=== PATIENT | male | born 1935 | race Caucasian/White ===

== ENCOUNTER 2019-02-07 07:09 | Emergency (ER) | payer MEDICARE, OTHER ==
[~2019-02-07] VITALS: Ht 170.2 cm; Wt 68.9 kg
[2019-02-07 07:15] VITALS: BP 91/52
--- NOTE | 2019-02-07 07:40 | NUR ---
WOUND CARE PROVIDED, SKIN ADHESIVE APPLIED. D/C IN STABLE CONDITION.
== END 2019-02-07 07:43 | disposition home or self-care (01) ==
LOC: ER 07:11
DX: S61.211A Laceration without foreign body of left index finger without damage to nail, initial encounter (principal); S60.411A Abrasion of left index finger, initial encounter; I10 Essential (primary) hypertension; E11.9 Type 2 diabetes mellitus without complications; Z95.5 Presence of coronary angioplasty implant and graft; Z88.2 Allergy status to sulfonamides; Z98.890 Other specified postprocedural states; W01.0XXA Fall on same level from slipping, tripping and stumbling without subsequent striking against object, initial encounter; Y93.89 Activity, other specified; Y92.89 Other specified places as the place of occurrence of the external cause; Y99.8 Other external cause status
CPT/HCPCS: 12001; 99283; A6402

== ENCOUNTER 2019-06-10 15:38 | Emergency (ER) | payer MEDICARE, OTHER ==
[~2019-06-10] VITALS: Ht 170.2 cm; Wt 67.1 kg
[2019-06-10 15:58] VITALS: BP 184/83
[2019-06-10] MEDS ORDERED: LIDOCAINE 1%-EPI 1:100,000 20 ML VIAL ONE (16:17)
== END 2019-06-10 17:21 | disposition home or self-care (01) ==
LOC: ER 15:41
DX: S81.012A Laceration without foreign body, left knee, initial encounter (principal); I10 Essential (primary) hypertension; E11.9 Type 2 diabetes mellitus without complications; Z98.890 Other specified postprocedural states; Z95.5 Presence of coronary angioplasty implant and graft; Z88.2 Allergy status to sulfonamides; W01.0XXA Fall on same level from slipping, tripping and stumbling without subsequent striking against object, initial encounter; Y93.89 Activity, other specified; Y92.89 Other specified places as the place of occurrence of the external cause; Y99.8 Other external cause status
CPT/HCPCS: 12002; 99283; J3490

== ENCOUNTER 2019-06-24 17:11 | Emergency (ER) | payer MEDICARE, OTHER ==
[~2019-06-24] VITALS: Ht 170.2 cm; Wt 67.1 kg
[2019-06-24 17:17] VITALS: BP 149/69
--- NOTE | 2019-06-24 17:35 | NUR ---
Patient discharged to home in stable condition. Written and verbal after care instructions given. Patient verbalizes understanding of instruction.
== END 2019-06-24 17:34 | disposition home or self-care (01) ==
LOC: ER 17:11
DX: S81.012D Laceration without foreign body, left knee, subsequent encounter (principal); I10 Essential (primary) hypertension; E11.9 Type 2 diabetes mellitus without complications; Z95.5 Presence of coronary angioplasty implant and graft; Z95.1 Presence of aortocoronary bypass graft; Z88.2 Allergy status to sulfonamides; X58.XXXD Exposure to other specified factors, subsequent encounter

== ENCOUNTER 2023-09-23 11:51 | Inpatient (IN) | payer MEDICARE, BC ==
[~2023-09-23] VITALS: Ht 170.2 cm; Wt 54.4 kg
[2023-09-23] VITALS (8 sets, daily range): BP systolic 148–201; BP diastolic 59–127; TEMP 97.8; O2SAT 93–96
[2023-09-23 12:27] LABS: BASOPHILS # (AUTO) 0.2 K/uL (0.0-0.2); BASOPHILS % (AUTO) 0.8 % (0.0-2.0); HEMATOCRIT 34 % (39-51); LYMPHOCYTES # (AUTO) 0.3 K/uL (0.8-4.8); LYMPHOCYTES % (AUTO) 1.4 % (20.0-44.0); MEAN CORPUSCULAR HEMOGLOBIN 31 PG (26.0-33.0); MEAN CORPUSCULAR HGB CONC 32 g/dl (31.0-36.0); MEAN CORPUSCULAR VOLUME 94 fL (80-96); MONOCYTES # (AUTO) 1.4 K/uL (0.1-1.30); MONOCYTES % (AUTO) 6.3 % (2.0-12.0); NEUTROPHILS # (AUTO) 20.3 K/uL (1.8-8.9); NEUTROPHILS % (AUTO) 91.5 % (43.0-81.0); PLATELET COUNT (AUTO) 230 K/uL (150-450); RED BLOOD CELL COUNT(AUTO) 3.62 MIL/uL (4.5-6.0); RED CELL DISTRIBUTION WIDTH 15.2 % (11.5-15.0); WHITE BLOOD COUNT (AUTO) 22.2 K/uL (4.3-11.0)
[2023-09-23 12:43] LABS: ALANINE AMINOTRANSFERASE 29 U/L (12-78); ALBUMIN 2.8 g/dL (3.4-5.0); ALKALINE PHOSPHATASE 81 U/L (46-116); ASPARTATE AMINOTRANSFERASE 50 U/L (15-37); BILIRUBIN,DIRECT 0.1 mg/dL (0.0-0.2); BILIRUBIN,TOTAL 0.4 mg/dL (0.2-1.0); CALCIUM, SERUM 8.9 mg/dL (8.5-10.1); CARBON DIOXIDE 12 mmol/L (21-32); CHLORIDE 102 mmol/L (98-107); CREATININE 3.8 mg/dL (0.6-1.3); POTASSIUM 3.9 mmol/L (3.5-5.1); SODIUM SERUM 133 mmol/L (136-145); TOTAL PROTEIN, SERUM 6.8 g/dL (6.4-8.2)
[2023-09-23 12:56] LABS: GLUCOSE 449 mg/dL (74-106); UREA NITROGEN, BLOOD 102 mg/dL (7-18)
[2023-09-23] MEDS ORDERED: IV NS 0.9% 1,000 ML BAG IV ONE (13:30)
[2023-09-23] MEDS ORDERED: POTA-10 PO (13:52)
[2023-09-23] MEDS ORDERED: COLE625T14 PO (13:52)
[2023-09-23] MEDS ORDERED: CARV12.5 PO (13:52)
[2023-09-23] MEDS ORDERED: GUAN2TAB14 PO (13:52)
[2023-09-23] MEDS ORDERED: SLOW FE PO (13:52)
[2023-09-23] MEDS ORDERED: PANT40TA2 PO (13:52)
[2023-09-23] MEDS ORDERED: CLOP75TA15 PO (13:52)
[2023-09-23] MEDS ORDERED: HYDR-4077 PO (13:52)
[2023-09-23] MEDS ORDERED: CHOL500052 PO (13:52)
[2023-09-23] MEDS ORDERED: MULT-1201 PO (13:52)
[2023-09-23] MEDS ORDERED: ACET-868 PO (13:52)
[2023-09-23] MEDS ORDERED: GLIP10TA3 PO (13:52)
[2023-09-23] MEDS ORDERED: BUDE9TAB PO (13:52)
[2023-09-23] MEDS ORDERED: [UNRECOGNIZED DRUG - OTHER] PO (13:52)
[2023-09-23] MEDS ORDERED: MESA1.2T PO (13:52)
[2023-09-23] MEDS ORDERED: FURO-144 PO (13:52)
[2023-09-23] MEDS ORDERED: ISOS30TA9 PO (13:52)
[2023-09-23] MEDS ORDERED: IV PREMIX NS +20MEQ KCL 1 L IV PRN (14:00)
[2023-09-23] MEDS ORDERED: INSULIN REGULAR, HUMAN 100 UNITS in IV NS 0.9% 100 ML IV PRN ×2 (14:00)
[2023-09-23] MEDS ORDERED: CEFTRIAXONE 1GM BAG (ER ONLY) 50 ML IV ONE ×2 (14:00→14:10)
[2023-09-23 14:38] LABS: APPEARANCE,URINE CLEAR (CLEAR); BILIRUBIN,URINE NEGATIVE (NEGATIVE); BLOOD, URINE TRACE-INTA Ery/uL (NEGATIVE); COLOR,URINE YELLOW (YELLOW); KETONES,URINE TRACE mg/dL (NEGATIVE); LEUKOCYTE ESTERASE ,URINE NEGATIVE (NEGATIVE); NITRITE, URINE NEGATIVE (NEGATIVE); PH,URINE 5.5 (5.0-8.0); PROTEIN,URINE 3+ mg/dl (NEGATIVE); UGLUCOSE 2+ mg/dL (NEGATIVE); UROBILINOGEN,URINE 0.2 EU/dL (0.2)
[2023-09-23 15:32] LABS: ADD URINE CULTURE NO; BACTERIA,URINE None seen /HPF (None Seen); MUCUS,URINE Many /LPF (None Seen); SQUAMOUS EPITHELIAL CELL,UR None Seen /HPF (None Seen); WBC,URINE NONE SEEN /HPF (0-3)
[2023-09-23 15:51] LABS: PHOSPHORUS 5.6 mg/dL (2.5-4.9)
[2023-09-23] MEDS ORDERED: Z GUARD REMEDY 4 OZ OINT TP PRN (16:00)
[2023-09-23] MEDS ORDERED: ACETAMINOPHEN 325 MG TABLET PO PRN (16:00)
[2023-09-23] MEDS ORDERED: ONDANSETRON HCL/PF 4 MG/2 ML VIAL IVP PRN (16:00)
[2023-09-23] MEDS ORDERED: INSULIN REGULAR, HUMAN 100 UNIT in IV NS 0.9% 99 ML IV PRN ×4 (16:00)
[2023-09-23] MEDS: BLOOD SUGAR DIAGNOSTIC 1 EACH STRIP IN SCH ×8 (16:26→23:17)
[2023-09-23] MEDS ORDERED: BLOOD SUGAR DIAGNOSTIC 1 EACH STRIP IN SCH (17:00)
[2023-09-23] MEDS: IV NS 0.9% 1,000 ML IV PRN ×2 (17:04→18:01)
[2023-09-23] MEDS: CARVEDILOL 12.5 MG TABLET PO SCH (17:23)
[2023-09-23] MEDS: ISOSORBIDE DINITRATE (20MG) 20 MG TABLET PO SCH (17:23)
[2023-09-23 17:53] LABS: CALCIUM, SERUM 8.6 mg/dL (8.5-10.1); CARBON DIOXIDE 11 mmol/L (21-32); CHLORIDE 109 mmol/L (98-107); CREATININE 3.4 mg/dL (0.6-1.3); GLUCOSE 129 mg/dL (74-106); MAGNESIUM 2.1 mg/dL (1.8-2.4); PHOSPHORUS 4.3 mg/dL (2.5-4.9); POTASSIUM 3.4 mmol/L (3.5-5.1); SODIUM SERUM 139 mmol/L (136-145); UREA NITROGEN, BLOOD 95 mg/dL (7-18)
[2023-09-23 18:32] LABS: MAGNESIUM 1.9 mg/dL (1.8-2.4); PHOSPHORUS 4.2 mg/dL (2.5-4.9)
[2023-09-23] MEDS: ENOXAPARIN SODIUM 60 MG/0.6 ML DISP.SYRIN SQ SCH (18:33)
[2023-09-23] MEDS: Potassium Chloride 20 MEQ in IV D5/0.45 NACL 1,000 ML IV SCH (18:51)
[2023-09-23] MEDS ORDERED: ERGOCALCIFEROL (VITAMIN D 2) 50,000 UNIT CAPSULE PO SCH (20:00)
[2023-09-23] MEDS ORDERED: Medication Not On Formulary EA (Cholecalciferol (Vitamin D3) (Vitamin D3) 50,000 UNIT) PO SCH (20:00)
[2023-09-23] MEDS ORDERED: HEPARIN SODIUM, PORCINE 5000 UNITS/1 ML VIAL SQ SCH (21:00)
[2023-09-23 21:31] LABS: CALCIUM, SERUM 8.3 mg/dL (8.5-10.1); CARBON DIOXIDE 16 mmol/L (21-32); CHLORIDE 111 mmol/L (98-107); CREATININE 3.2 mg/dL (0.6-1.3); GLUCOSE 101 mg/dL (74-106); POTASSIUM 3.8 mmol/L (3.5-5.1); SODIUM SERUM 139 mmol/L (136-145)
[2023-09-23 21:33] LABS: UREA NITROGEN, BLOOD 92 mg/dL (7-18)
[2023-09-23] MEDS ORDERED: GUANFACINE HCL 2 MG PO SCH (22:00)
[2023-09-23] MEDS: hydrALAZINE HCL IV 20 MG VIAL IV PRN (22:05)
[2023-09-23 22:27] LABS: PHOSPHORUS 4.4 mg/dL (2.5-4.9)
[2023-09-24] VITALS (28 sets, daily range): BP systolic 135–220; BP diastolic 64–109; TEMP 97.4–98.6; O2SAT 92–97
[2023-09-24] MEDS: BLOOD SUGAR DIAGNOSTIC 1 EACH STRIP IN SCH ×10 (00:34→22:12)
[2023-09-24 01:24] LABS: CALCIUM, SERUM 8.2 mg/dL (8.5-10.1); CARBON DIOXIDE 13 mmol/L (21-32); CHLORIDE 112 mmol/L (98-107); GLUCOSE 84 mg/dL (74-106); MAGNESIUM 1.9 mg/dL (1.8-2.4); PHOSPHORUS 4.4 mg/dL (2.5-4.9); POTASSIUM 3.7 mmol/L (3.5-5.1); SODIUM SERUM 139 mmol/L (136-145)
[2023-09-24 01:27] LABS: UREA NITROGEN, BLOOD 90 mg/dL (7-18)
[2023-09-24] MEDS ORDERED: DEXTROSE 50%-WATER 50 ML DISP.SYRIN IV PRN ×2 (01:30→11:00)
[2023-09-24] MEDS ORDERED: INSULIN REGULAR, HUMAN 100 UNIT/ML 3 ML VIAL SQ PRN (01:30)
[2023-09-24 04:10] LABS: BASOPHILS % (AUTO) 0.2 % (0.0-2.0); HEMATOCRIT 31 % (39-51); HEMOGLOBIN 9.8 g/dL (13.5-17.5); LYMPHOCYTES # (AUTO) 0.6 K/uL (0.8-4.8); LYMPHOCYTES % (AUTO) 3.1 % (20.0-44.0); MEAN CORPUSCULAR HEMOGLOBIN 31 PG (26.0-33.0); MEAN CORPUSCULAR HGB CONC 32 g/dl (31.0-36.0); MEAN CORPUSCULAR VOLUME 95 fL (80-96); MONOCYTES # (AUTO) 0.8 K/uL (0.1-1.30); MONOCYTES % (AUTO) 4.6 % (2.0-12.0); NEUTROPHILS # (AUTO) 16.4 K/uL (1.8-8.9); NEUTROPHILS % (AUTO) 92.1 % (43.0-81.0); PLATELET COUNT (AUTO) 185 K/uL (150-450); RED BLOOD CELL COUNT(AUTO) 3.22 MIL/uL (4.5-6.0); RED CELL DISTRIBUTION WIDTH 15.1 % (11.5-15.0); WHITE BLOOD COUNT (AUTO) 17.8 K/uL (4.3-11.0)
[2023-09-24] MEDS: hydrALAZINE HCL IV 20 MG VIAL IV PRN (04:11)
[2023-09-24 04:19] LABS: CHOLESTEROL 177 mg/dL (<200); HDL CHOLESTEROL 46 mg/dL (40-60); LDL 107 mg/dL (0-99); TRIGLYCERIDES 138 mg/dL (30-150)
[2023-09-24 04:21] LABS: CALCIUM, SERUM 8.1 mg/dL (8.5-10.1); CARBON DIOXIDE 11 mmol/L (21-32); CHLORIDE 111 mmol/L (98-107); CREATININE 2.8 mg/dL (0.6-1.3); GLUCOSE 165 mg/dL (74-106); MAGNESIUM 1.9 mg/dL (1.8-2.4); PHOSPHORUS 4.5 mg/dL (2.5-4.9); POTASSIUM 3.8 mmol/L (3.5-5.1); SODIUM SERUM 139 mmol/L (136-145)
[2023-09-24 04:27] LABS: UREA NITROGEN, BLOOD 86 mg/dL (7-18)
[2023-09-24] MEDS ORDERED: INSULIN REGULAR, HUMAN 100 UNIT in IV NS 0.9% 99 ML IV PRN ×2 (05:00)
[2023-09-24] MEDS: Potassium Chloride 20 MEQ in IV D5/0.45 NACL 1,000 ML IV SCH (05:16)
[2023-09-24] MEDS ORDERED: BLOOD SUGAR DIAGNOSTIC 1 EACH STRIP IN SCH (06:00)
[2023-09-24 08:43] LABS: THYROID STIMULATING HORMONE 0.398 uIU/mL (0.358-3.74)
[2023-09-24] MEDS: CARVEDILOL 12.5 MG TABLET PO SCH ×2 (08:51→21:33)
[2023-09-24] MEDS: PANTOPRAZOLE 40 MG VIAL IV SCH (08:51)
[2023-09-24] MEDS: VIT B CMPLX 3/FA/VIT C/BIOTIN 1 TAB TABLET PO SCH (08:52)
[2023-09-24] MEDS: ISOSORBIDE DINITRATE (20MG) 20 MG TABLET PO SCH (08:52)
[2023-09-24] MEDS: CLOPIDOGREL BISULFATE 75 MG TABLET PO SCH (08:52)
[2023-09-24] MEDS: NITROGLYCERIN 30 GM TUBE TP SCH ×2 (08:53→21:30)
[2023-09-24 08:58] LABS: CALCIUM, SERUM 8.4 mg/dL (8.5-10.1); CARBON DIOXIDE 15 mmol/L (21-32); CHLORIDE 112 mmol/L (98-107); CREATININE 2.8 mg/dL (0.6-1.3); GLUCOSE 137 mg/dL (74-106); POTASSIUM 3.4 mmol/L (3.5-5.1); SODIUM SERUM 139 mmol/L (136-145)
[2023-09-24] MEDS ORDERED: Medication Not On Formulary EA (Budesonide (Uceris) 9 MG) PO SCH (09:00)
[2023-09-24] MEDS ORDERED: hydrALAZINE HCL 50 MG TABLET PO SCH (09:00)
[2023-09-24 09:49] LABS: UREA NITROGEN, BLOOD 81 mg/dL (7-18)
[2023-09-24 11:04] LABS: CREATININE, URINE 39.3 MG/DL (30.0-125.0); URINE TOTAL PROTEIN 200.3 mg/dL (0-11.9)
[2023-09-24] MEDS: IV LR 1000 ML 1,000 ML IV PRN (11:10)
[2023-09-24] MEDS: hydrALAZINE HCL 50 MG TABLET PO SCH (17:14)
[2023-09-24] MEDS: ENOXAPARIN SODIUM 60 MG/0.6 ML DISP.SYRIN SQ SCH (17:16)
[2023-09-24] MEDS: INSULIN REGULAR, HUMAN 100 UNIT/ML 3 ML VIAL SQ PRN ×2 (17:38→22:27)
[2023-09-24] MEDS ORDERED: ISOSORBIDE DINITRATE (20MG) 20 MG TABLET PO SCH (21:00)
[2023-09-25] VITALS (7 sets, daily range): BP systolic 145–193; BP diastolic 70–87; TEMP 97.7–98.5; O2SAT 94–97
[2023-09-25] MEDS: hydrALAZINE HCL 50 MG TABLET PO SCH ×3 (00:22→16:35)
[2023-09-25] MEDS: IV LR 1000 ML 1,000 ML IV PRN ×2 (02:28→16:18)
[2023-09-25] MEDS: BLOOD SUGAR DIAGNOSTIC 1 EACH STRIP IN SCH ×4 (07:49→22:00)
[2023-09-25 07:53] LABS: BASOPHILS % (AUTO) 0.1 % (0.0-2.0); EOSINOPHILS # (AUTO) 0.1 K/uL (0.0-0.7); EOSINOPHILS % (AUTO) 0.9 % (0.0-6.0); HEMATOCRIT 32 % (39-51); HEMOGLOBIN 10.5 g/dL (13.5-17.5); LYMPHOCYTES # (AUTO) 0.8 K/uL (0.8-4.8); LYMPHOCYTES % (AUTO) 4.9 % (20.0-44.0); MEAN CORPUSCULAR HEMOGLOBIN 31 PG (26.0-33.0); MEAN CORPUSCULAR HGB CONC 33 g/dl (31.0-36.0); MEAN CORPUSCULAR VOLUME 94 fL (80-96); MONOCYTES % (AUTO) 6.5 % (2.0-12.0); NEUTROPHILS # (AUTO) 14.1 K/uL (1.8-8.9); NEUTROPHILS % (AUTO) 87.6 % (43.0-81.0); PLATELET COUNT (AUTO) 192 K/uL (150-450); RED BLOOD CELL COUNT(AUTO) 3.41 MIL/uL (4.5-6.0); RED CELL DISTRIBUTION WIDTH 15.2 % (11.5-15.0); WHITE BLOOD COUNT (AUTO) 16.1 K/uL (4.3-11.0)
[2023-09-25 08:33] LABS: CREATINE KINASE, TOTAL 143 U/L (39-308)
[2023-09-25 08:44] LABS: ALANINE AMINOTRANSFERASE 24 U/L (12-78); ALBUMIN 2.3 g/dL (3.4-5.0); ALKALINE PHOSPHATASE 63 U/L (46-116); ASPARTATE AMINOTRANSFERASE 21 U/L (15-37); BILIRUBIN,TOTAL 0.4 mg/dL (0.2-1.0); CALCIUM, SERUM 8.3 mg/dL (8.5-10.1); CARBON DIOXIDE 15 mmol/L (21-32); CHLORIDE 109 mmol/L (98-107); CREATININE 2.6 mg/dL (0.6-1.3); GLUCOSE 118 mg/dL (74-106); MAGNESIUM 1.8 mg/dL (1.8-2.4); PHOSPHORUS 3.6 mg/dL (2.5-4.9); POTASSIUM 3.5 mmol/L (3.5-5.1); SODIUM SERUM 137 mmol/L (136-145); TOTAL PROTEIN, SERUM 5.8 g/dL (6.4-8.2); UREA NITROGEN, BLOOD 69 mg/dL (7-18)
[2023-09-25] MEDS: PANTOPRAZOLE 40 MG VIAL IV SCH (09:16)
[2023-09-25] MEDS: CARVEDILOL 12.5 MG TABLET PO SCH ×2 (09:16→21:00)
[2023-09-25] MEDS: NIFEdipine XL (30MG) 30 MG TAB PO SCH (09:16)
[2023-09-25] MEDS: CLOPIDOGREL BISULFATE 75 MG TABLET PO SCH (09:16)
[2023-09-25] MEDS: ISOSORBIDE DINITRATE (20MG) 20 MG TABLET PO SCH ×2 (09:17→21:00)
[2023-09-25] MEDS: VIT B CMPLX 3/FA/VIT C/BIOTIN 1 TAB TABLET PO SCH (09:17)
[2023-09-25] MEDS: HEPARIN SODIUM, PORCINE 5000 UNITS/1 ML VIAL SQ SCH ×2 (09:18→21:00)
[2023-09-25] MEDS: INSULIN REGULAR, HUMAN 100 UNIT/ML 3 ML VIAL SQ PRN ×3 (12:29→23:35)
[2023-09-25 14:51] LABS: HIV-1 p24 ANTIGEN NON REACTIVE (NONREACTIVE); HIV-1/2 ANTIBODY NON REACTIVE (NONREACTIVE)
[2023-09-26] VITALS: BP 104/57; TEMP 99; O2SAT 94
[2023-09-26] MEDS: hydrALAZINE HCL 50 MG TABLET PO SCH ×3 (01:00→16:24)
[2023-09-26 04:00] VITALS: BP 104/57; TEMP 99; O2SAT 94
[2023-09-26 04:06] LABS: PTH, INTACT 28 pg/mL (15-65)
[2023-09-26] MEDS: IV LR 1000 ML 1,000 ML IV PRN (06:26)
[2023-09-26 07:19] LABS: ABG BASE EXCESS -8.2 mmol/L; ABG OXYGEN SATURATION 89.6 % (92.0-98.5); ABG PH 7.447 (7.350-7.450); ABG PO2 58.7 mmHg (75.0-100.0); ABG TOTAL HEMOGLOBIN 10.4 G/dL (13.5-18.0); MetHb 0.3 % (0.0-1.5); O2Hb 87.5 % (94.0-97.0); SITE, ABG Left Radial; VENT MODE, BG ROOM AIR
[2023-09-26] MEDS: BLOOD SUGAR DIAGNOSTIC 1 EACH STRIP IN SCH ×3 (07:30→16:54)
[2023-09-26 07:59] LABS: BASOPHILS % (AUTO) 0.1 % (0.0-2.0); EOSINOPHILS # (AUTO) 0.1 K/uL (0.0-0.7); EOSINOPHILS % (AUTO) 1.1 % (0.0-6.0); HEMATOCRIT 30 % (39-51); HEMOGLOBIN 9.9 g/dL (13.5-17.5); LYMPHOCYTES # (AUTO) 0.6 K/uL (0.8-4.8); MEAN CORPUSCULAR HEMOGLOBIN 31 PG (26.0-33.0); MEAN CORPUSCULAR HGB CONC 33 g/dl (31.0-36.0); MEAN CORPUSCULAR VOLUME 94 fL (80-96); MONOCYTES # (AUTO) 0.7 K/uL (0.1-1.30); MONOCYTES % (AUTO) 5.1 % (2.0-12.0); NEUTROPHILS # (AUTO) 11.4 K/uL (1.8-8.9); NEUTROPHILS % (AUTO) 88.7 % (43.0-81.0); PLATELET COUNT (AUTO) 164 K/uL (150-450); RED BLOOD CELL COUNT(AUTO) 3.19 MIL/uL (4.5-6.0); RED CELL DISTRIBUTION WIDTH 15.3 % (11.5-15.0); WHITE BLOOD COUNT (AUTO) 12.9 K/uL (4.3-11.0)
[2023-09-26 08:00] VITALS: BP 132/68; TEMP 97.6; O2SAT 95
[2023-09-26 08:14] LABS: CALCIUM, SERUM 8.4 mg/dL (8.5-10.1); CARBON DIOXIDE 16 mmol/L (21-32); CHLORIDE 109 mmol/L (98-107); CREATININE 2.3 mg/dL (0.6-1.3); GLUCOSE 177 mg/dL (74-106); MAGNESIUM 1.6 mg/dL (1.8-2.4); PHOSPHORUS 3.3 mg/dL (2.5-4.9); POTASSIUM 3.5 mmol/L (3.5-5.1); SODIUM SERUM 139 mmol/L (136-145); UREA NITROGEN, BLOOD 59 mg/dL (7-18)
[2023-09-26] MEDS: VIT B CMPLX 3/FA/VIT C/BIOTIN 1 TAB TABLET PO SCH (08:52)
[2023-09-26] MEDS: CLOPIDOGREL BISULFATE 75 MG TABLET PO SCH (08:52)
[2023-09-26] MEDS: CARVEDILOL 12.5 MG TABLET PO SCH (08:52)
[2023-09-26] MEDS: NIFEdipine XL (30MG) 30 MG TAB PO SCH (08:53)
[2023-09-26] MEDS: HEPARIN SODIUM, PORCINE 5000 UNITS/1 ML VIAL SQ SCH (08:54)
[2023-09-26] MEDS ORDERED: PANTOPRAZOLE 40 MG TABLET.DR PO SCH (09:00)
[2023-09-26 09:09] LABS: *SPE A/G RATIO 0.9 (0.7-1.7); *SPE ALBUMIN 2.3 g/dL (2.9-4.4); *SPE ALPHA-1-GLOBULIN 0.2 g/dL (0.0-0.4); *SPE ALPHA-2-GLOBULIN 0.8 g/dL (0.4-1.0); *SPE BETA GLOBULIN 0.8 g/dL (0.7-1.3); *SPE GLOBULIN, TOTAL 2.6 g/dL (2.2-3.9); *SPE M-SPIKE Not Observed g/dL (Not Observed); *SPE PROTEIN TOTAL 4.9 g/dL (6.0-8.5); *SPEGAMMA GLOBULIN 0.7 g/dL (0.4-1.8)
[2023-09-26] MEDS ORDERED: NEPRO VAN 237 ML CAN PO PRN (09:30)
[2023-09-26] MEDS: ISOSORBIDE DINITRATE (20MG) 20 MG TABLET PO SCH (09:46)
[2023-09-26] MEDS ORDERED: MAGNESIUM OXIDE 400 MG TABLET PO ONE (10:00)
[2023-09-26 12:00] VITALS: BP 112/53; TEMP 97.7; O2SAT 92
[2023-09-26 16:00] VITALS: BP 125/70; TEMP 97.8; O2SAT 95
[2023-09-26] MEDS: INSULIN REGULAR, HUMAN 100 UNIT/ML 3 ML VIAL SQ PRN (16:53)
== END 2023-09-26 18:14 | disposition home health service (06) | DRG 637 ==
LOC: ER 12:01 → ICU 14:30 → TELE1 09-24 18:25
PROVIDERS: ADMIT Nurse Practitioner Family; ATTEND Nurse Practitioner Family
DX: E11.10 Type 2 diabetes mellitus with ketoacidosis without coma (principal); I21.4 Non-ST elevation (NSTEMI) myocardial infarction; U07.1 COVID-19; N17.9 Acute kidney failure, unspecified; E44.0 Moderate protein-calorie malnutrition; Z68.1 Body mass index [BMI] 19.9 or less, adult; N18.4 Chronic kidney disease, stage 4 (severe); I12.9 Hypertensive chronic kidney disease with stage 1 through stage 4 chronic kidney disease, or unspecified chronic kidney disease; I16.0 Hypertensive urgency; D64.9 Anemia, unspecified; D72.829 Elevated white blood cell count, unspecified; E11.22 Type 2 diabetes mellitus with diabetic chronic kidney disease; E78.5 Hyperlipidemia, unspecified; E86.9 Volume depletion, unspecified; E88.09 Other disorders of plasma-protein metabolism, not elsewhere classified; I25.10 Atherosclerotic heart disease of native coronary artery without angina pectoris; I25.2 Old myocardial infarction; I35.1 Nonrheumatic aortic (valve) insufficiency; I48.91 Unspecified atrial fibrillation; M89.8X9 Other specified disorders of bone, unspecified site; Z79.84 Long term (current) use of oral hypoglycemic drugs; Z79.899 Other long term (current) drug therapy; Z95.5 Presence of coronary angioplasty implant and graft; R53.1 Weakness; Z95.1 Presence of aortocoronary bypass graft
CPT/HCPCS: 36415; 36600; 70450-TC; 71045-TC; 76770-TC; 80048-TC; 80053-TC; 80061-TC; 80076-TC; 81001; 82010-TC; 82550-TC; 82570-TC; 82728-TC; 82962-TC; 83540-TC; 83735-TC; 83970; 84100-TC; 84155; 84165; 84300-TC; 84439-TC; 84443-TC; 84484-TC; 85025-TC; 86803; 87040-TC; 87081-TC; 87086-TC; 87806; 93307-TC; 97110-TC; 97530-TC; A4223; A4349; C9113; G0378; J0360; J0696; J1644; J1650; J1815; J3480; J3490; J7030; J7120